=== PATIENT | female | born 1980 | race Caucasian/White ===

== ENCOUNTER 2017-03-17 20:36 | Emergency (ER) | payer MEDICAID ==
[~2017-03-17] VITALS: Ht 165.1 cm; Wt 63.5 kg
[2017-03-17 20:58] VITALS: Ht 165.1 cm; Wt 63.5 kg
[2017-03-17 21:56] VITALS: BP 115/68
== END 2017-03-17 21:56 | disposition home or self-care (01) ==
LOC: ED 20:36
DX: N39.0 Urinary tract infection, site not specified (principal); R81 Glycosuria

== ENCOUNTER 2018-03-12 19:35 | Inpatient (IN) | payer MEDICAID ==
[~2018-03-12] VITALS: Ht 162.6 cm; Wt 72.0 kg
[2018-03-12 21:15] LABS: BASOPHIL % 0.5 % (0-2); PLATELET COUNT 217 x10^3mcL (130-400); RED CELL DISTRIBUTION WIDTH 14.4 % (11.5-14.5)
[2018-03-12 21:37] LABS: ALKALINE PHOSPHATASE 80 U/L (46-116); ALT/SGPT 36 U/L (14-59); AMYLASE 35 U/L (25-115); AST/SGOT 22 U/L (15-37); BILIRUBIN TOTAL 0.41 mg/dL (0.20-1.00); CALCIUM 8.2 mg/dL (8.5-10.1); CARBON DIOXIDE 21.7 mmol/L (21-32); CHLORIDE SERUM 102 mmol/L (98-107); GFR1 > 60 mL/min; GLUCOSE SERUM 334 mg/dL (74-106); LIPASE 123 IU/L (73-393); SODIUM SERUM 135 mmol/L (136-145); TOTAL PROTEIN, SERUM 6.9 g/dL (6.4-8.2)
[2018-03-12 21:40] LABS: POTASSIUM SERUM 2.9 mmol/L (3.5-5.1)
[2018-03-12 21:57] LABS: UA SPECIFIC GRAVITY 1.025 (1.005-1.035); microscopic required? YES; urine erythrocyte 1+ (NEGATIVE)
[2018-03-12] MEDS ORDERED: METFORMIN HCL1000 MG PO (22:28)
[2018-03-12] MEDS ORDERED: ZESTRIL5 MG PO (22:29)
[2018-03-12] MEDS ORDERED: ZOCOR10 MG PO (22:30)
[2018-03-12 23:03] LABS: T3 TOTAL 0.95 ng/mL
[2018-03-12 23:21] VITALS: BP 98/56
[2018-03-12 23:21] LABS: CHOLESTEROL/HDL RATIO 3.9; MAGNESIUM 1.2 mg/dL (1.8-2.4); PHOSPHOROUS 1.2 mg/dL (2.5-4.9)
[2018-03-12 23:30] LABS: FREE T4 1.08 ng/dL (0.76-1.46); T4(THYROXINE) 8.8 ug/dL (4.7-13.3)
[2018-03-12 23:58] VITALS: BP 85/46
[2018-03-13] VITALS (8 sets, daily range): BP systolic 77–117; BP diastolic 40–83
[2018-03-13 00:23] LABS: AMPHETAMINE QUAL UR NONE DETECTED (See below)
[2018-03-13 06:16] LABS: BASOPHIL % 0.2 % (0-2); PLATELET COUNT 235 x10^3mcL (130-400); RED BLOOD CELLS 4.38 M/mm3 (4.10-5.10)
[2018-03-13 06:38] LABS: CALCIUM 8.2 mg/dL (8.5-10.1); CARBON DIOXIDE 17.8 mmol/L (21-32); CHLORIDE SERUM 111 mmol/L (98-107); CREATININE SERUM 0.9 mg/dL (0.6-1.0); GFR1 > 60 mL/min; GLUCOSE SERUM 250 mg/dL (74-106); MAGNESIUM 1.5 mg/dL (1.8-2.4); PHOSPHOROUS 2.4 mg/dL (2.5-4.9); POTASSIUM SERUM 3.7 mmol/L (3.5-5.1); SODIUM SERUM 143 mmol/L (136-145)
[2018-03-13 06:42] LABS: TOTAL IRON BINDING CAPACITY 376 ug/dL (250-450)
[2018-03-13 06:48] LABS: IRON 9 ug/dL (50-170)
[2018-03-13 07:14] LABS: RED CELL DISTRIBUTION WIDTH 15.1 % (11.5-14.5)
[2018-03-14 06:09] LABS: BASOPHIL % 0.1 % (0-2); PLATELET COUNT 179 x10^3mcL (130-400)
[2018-03-14 06:20] LABS: RED CELL DISTRIBUTION WIDTH 15.1 % (11.5-14.5)
[2018-03-14 06:24] LABS: CALCIUM 7.8 mg/dL (8.5-10.1); CARBON DIOXIDE 21.6 mmol/L (21-32); CHLORIDE SERUM 108 mmol/L (98-107); CREATININE SERUM 0.8 mg/dL (0.6-1.0); GFR1 > 60 mL/min; GLUCOSE SERUM 167 mg/dL (74-106); MAGNESIUM 1.8 mg/dL (1.8-2.4); PHOSPHOROUS 2.2 mg/dL (2.5-4.9); POTASSIUM SERUM 3.2 mmol/L (3.5-5.1); SODIUM SERUM 142 mmol/L (136-145)
[2018-03-14 06:30] VITALS: BP 105/70
[2018-03-14 08:57] VITALS: BP 110/71
[2018-03-14 13:15] VITALS: BP 105/70
[2018-03-14 18:01] VITALS: BP 116/78
[2018-03-14 21:07] VITALS: BP 126/77
[2018-03-15 05:34] VITALS: BP 113/78
[2018-03-15 06:37] LABS: CALCIUM 8.1 mg/dL (8.5-10.1); CARBON DIOXIDE 17.9 mmol/L (21-32); CHLORIDE SERUM 104 mmol/L (98-107); CREATININE SERUM 0.7 mg/dL (0.6-1.0); GFR1 > 60 mL/min; GLUCOSE SERUM 181 mg/dL (74-106); MAGNESIUM 1.9 mg/dL (1.8-2.4); PHOSPHOROUS 1.7 mg/dL (2.5-4.9); POTASSIUM SERUM 4.1 mmol/L (3.5-5.1); SODIUM SERUM 133 mmol/L (136-145)
[2018-03-15 06:42] LABS: BASOPHIL % 0.2 % (0-2); PLATELET COUNT 180 x10^3mcL (130-400)
[2018-03-15 07:07] LABS: RED CELL DISTRIBUTION WIDTH 15.2 % (11.5-14.5)
[2018-03-15 09:26] VITALS: BP 136/82
[2018-03-15 10:00] VITALS: Ht 162.6 cm; Wt 72.0 kg
[2018-03-15 11:59] VITALS: BP 116/80
[2018-03-15 16:34] VITALS: BP 129/81
[2018-03-15 20:41] VITALS: BP 144/81
[2018-03-16 05:02] VITALS: BP 112/70
[2018-03-16 06:59] LABS: BASOPHIL % 0.1 % (0-2); PLATELET COUNT 199 x10^3mcL (130-400)
[2018-03-16 07:35] LABS: RED CELL DISTRIBUTION WIDTH 15.8 % (11.5-14.5)
[2018-03-16 07:37] LABS: CALCIUM 8.3 mg/dL (8.5-10.1); CARBON DIOXIDE 16.6 mmol/L (21-32); CHLORIDE SERUM 111 mmol/L (98-107); CREATININE SERUM 0.6 mg/dL (0.6-1.0); GFR1 > 60 mL/min; GLUCOSE SERUM 150 mg/dL (74-106); POTASSIUM SERUM 4.1 mmol/L (3.5-5.1); SODIUM SERUM 140 mmol/L (136-145)
[2018-03-16 10:45] VITALS: BP 130/77
[2018-03-16 15:00] VITALS: BP 118/75
[2018-03-16 16:43] VITALS: BP 141/81
[2018-03-16 20:37] VITALS: BP 133/79
[2018-03-17 04:41] VITALS: BP 102/70
[2018-03-17 07:01] LABS: CALCIUM 8.5 mg/dL (8.5-10.1); CARBON DIOXIDE 18.6 mmol/L (21-32); CHLORIDE SERUM 106 mmol/L (98-107); CREATININE SERUM 0.7 mg/dL (0.6-1.0); GFR1 > 60 mL/min; GLUCOSE SERUM 150 mg/dL (74-106); MAGNESIUM 1.6 mg/dL (1.8-2.4); POTASSIUM SERUM 4.2 mmol/L (3.5-5.1); SODIUM SERUM 136 mmol/L (136-145)
[2018-03-17 09:45] LABS: PLATELET COUNT 254 x10^3mcL (130-400)
[2018-03-17 09:50] LABS: RED CELL DISTRIBUTION WIDTH 14.7 % (11.5-14.5)
[2018-03-17 11:14] LABS: BAND NEUTROPHIL 6 % (0-10); BASOPHIL 0 % (0-2); MONOCYTE 10 % (0-7); SEGMENTED NEUTROPHILS 50 % (37-75)
[2018-03-17 11:15] LABS: rbc morphology (normal/abnorm) ABNORMAL (NORMAL)
[2018-03-17 11:16] LABS: PLATELET MORPHOLOGY PLATELETS NORMAL; ovalocyte/elliptocyte 1+
[2018-03-17 12:25] VITALS: BP 114/72
[2018-03-17 17:15] VITALS: BP 141/83
[2018-03-18 06:35] VITALS: BP 142/59
[2018-03-18 10:30] VITALS: BP 97/59
[2018-03-18 12:55] VITALS: BP 118/72
[2018-03-18 17:05] VITALS: BP 104/65
[2018-03-18 20:38] VITALS: BP 117/69
[2018-03-19 06:00] VITALS: BP 112/64
[2018-03-19 06:32] LABS: CALCIUM 8.5 mg/dL (8.5-10.1); CARBON DIOXIDE 23.5 mmol/L (21-32); CHLORIDE SERUM 106 mmol/L (98-107); CREATININE SERUM 0.7 mg/dL (0.6-1.0); GFR1 > 60 mL/min; GLUCOSE SERUM 147 mg/dL (74-106); POTASSIUM SERUM 3.6 mmol/L (3.5-5.1); SODIUM SERUM 140 mmol/L (136-145)
[2018-03-19 06:38] LABS: BASOPHIL % 0.4 % (0-2); PLATELET COUNT 364 x10^3mcL (130-400); RED CELL DISTRIBUTION WIDTH 14.1 % (11.5-14.5)
[2018-03-19 09:51] VITALS: BP 106/68
[2018-03-19 14:13] VITALS: BP 107/71
[2018-03-19 17:30] VITALS: BP 119/75
[2018-03-19 21:30] VITALS: BP 93/56
[2018-03-20 06:04] VITALS: BP 121/69
[2018-03-20 08:05] VITALS: BP 123/76
[2018-03-20 11:56] VITALS: BP 117/72
[2018-03-20 16:09] VITALS: BP 99/60
[2018-03-20 20:45] VITALS: BP 117/69
[2018-03-21 05:39] VITALS: BP 105/59
[2018-03-21 09:06] VITALS: BP 111/58
[2018-03-21 16:16] VITALS: BP 109/60
[2018-03-21 20:45] VITALS: BP 101/60
[2018-03-22 05:43] VITALS: BP 115/72
[2018-03-22 09:27] VITALS: BP 102/63
[2018-03-22 16:40] VITALS: BP 102/69
[2018-03-22 20:56] VITALS: BP 96/61
[2018-03-23 05:32] VITALS: BP 95/61
[2018-03-23 06:32] LABS: BASOPHIL % 0.3 % (0-2)
[2018-03-23 06:34] LABS: PLATELET COUNT 447 x10^3mcL (130-400); RED CELL DISTRIBUTION WIDTH 15.5 % (11.5-14.5)
[2018-03-23 07:04] LABS: CALCIUM 9.3 mg/dL (8.5-10.1); CARBON DIOXIDE 28.5 mmol/L (21-32); CHLORIDE SERUM 102 mmol/L (98-107); CREATININE SERUM 0.7 mg/dL (0.6-1.0); GFR1 > 60 mL/min; GLUCOSE SERUM 157 mg/dL (74-106); POTASSIUM SERUM 4.1 mmol/L (3.5-5.1); SODIUM SERUM 137 mmol/L (136-145)
[2018-03-23 09:20] VITALS: BP 95/51
[2018-03-23 17:23] VITALS: BP 104/66
[2018-03-23 21:00] VITALS: BP 110/68
[2018-03-24 06:04] VITALS: BP 87/55
[2018-03-24 08:54] VITALS: BP 91/53
[2018-03-24 17:46] VITALS: BP 113/66
[2018-03-24 20:40] VITALS: BP 94/66
[2018-03-25 06:06] VITALS: BP 103/76
[2018-03-25 09:41] VITALS: BP 92/58
[2018-03-25 16:48] VITALS: BP 90/56
[2018-03-25 21:18] VITALS: BP 102/67
[2018-03-26 05:30] VITALS: BP 98/63
[2018-03-26 10:07] VITALS: BP 101/72
[2018-03-26 17:34] VITALS: BP 107/65
[2018-03-26 18:11] VITALS: BP 107/65
[2018-03-26 19:51] LABS: PLATELET COUNT 396 x10^3mcL (130-400)
[2018-03-26 20:00] LABS: RED CELL DISTRIBUTION WIDTH 15.6 % (11.5-14.5)
[2018-03-26 20:59] LABS: BAND NEUTROPHIL 5 % (0-10); BASOPHIL 0 % (0-2); SEGMENTED NEUTROPHILS 84 % (37-75); rbc morphology (normal/abnorm) ABNORMAL (NORMAL)
[2018-03-26 21:20] VITALS: BP 97/59
[2018-03-27 05:51] VITALS: BP 86/55
[2018-03-27 06:32] LABS: CALCIUM 8.6 mg/dL (8.5-10.1); CARBON DIOXIDE 26.1 mmol/L (21-32); CREATININE SERUM 1.3 mg/dL (0.6-1.0); POTASSIUM SERUM 4.2 mmol/L (3.5-5.1)
[2018-03-27 08:42] LABS: PLATELET COUNT 424 x10^3mcL (130-400); RED CELL DISTRIBUTION WIDTH 16.1 % (11.5-14.5)
[2018-03-27 09:41] LABS: BAND NEUTROPHIL 21 % (0-10); BASOPHIL 0 % (0-2); MONOCYTE 5 % (0-7); SEGMENTED NEUTROPHILS 69 % (37-75)
[2018-03-27 09:42] LABS: PLATELET MORPHOLOGY LARGE PLATELET SEEN; rbc morphology (normal/abnorm) ABNORMAL (NORMAL); tear drop cell (dacryocyte) 1+
[2018-03-27 09:50] VITALS: BP 84/56
[2018-03-27 17:45] VITALS: BP 79/43
[2018-03-27 18:45] VITALS: BP 76/42
[2018-03-27 20:47] VITALS: BP 75/42
[2018-03-27 23:46] VITALS: BP 73/39
[2018-03-28] VITALS (8 sets, daily range): BP systolic 72–97; BP diastolic 38–54
[2018-03-28 06:45] LABS: PLATELET COUNT 308 x10^3mcL (130-400)
[2018-03-28 07:28] LABS: CALCIUM 8.2 mg/dL (8.5-10.1); CARBON DIOXIDE 21.5 mmol/L (21-32); CHLORIDE SERUM 103 mmol/L (98-107); GFR1 > 60 mL/min; GLUCOSE SERUM 179 mg/dL (74-106); POTASSIUM SERUM 3.6 mmol/L (3.5-5.1); SODIUM SERUM 136 mmol/L (136-145)
[2018-03-28 07:29] LABS: RED CELL DISTRIBUTION WIDTH 16.2 % (11.5-14.5)
[2018-03-28 11:25] LABS: BAND NEUTROPHIL 24 % (0-10); BASOPHIL 0 % (0-2); MONOCYTE 3 % (0-7); SEGMENTED NEUTROPHILS 63 % (37-75)
[2018-03-28 11:27] LABS: PLATELET MORPHOLOGY GIANT PLATELET SEEN; burr cell (echinocyte) 1+; ovalocyte/elliptocyte 1+; rbc morphology (normal/abnorm) ABNORMAL (NORMAL); tear drop cell (dacryocyte) 1+
[2018-03-29 05:54] VITALS: BP 92/56
[2018-03-29 07:28] VITALS: BP 89/55
[2018-03-29 07:30] LABS: PLATELET COUNT 309 x10^3mcL (130-400)
[2018-03-29 07:32] LABS: CALCIUM 8.4 mg/dL (8.5-10.1); CARBON DIOXIDE 23.3 mmol/L (21-32); CHLORIDE SERUM 110 mmol/L (98-107); CREATININE SERUM 0.7 mg/dL (0.6-1.0); GFR1 > 60 mL/min; GLUCOSE SERUM 142 mg/dL (74-106); MAGNESIUM 2.2 mg/dL (1.8-2.4); POTASSIUM SERUM 3.6 mmol/L (3.5-5.1); SODIUM SERUM 143 mmol/L (136-145)
[2018-03-29 07:39] LABS: RED CELL DISTRIBUTION WIDTH 16.2 % (11.5-14.5)
[2018-03-29] MEDS ORDERED: NOVAPLUS VANCO125 MG PO (11:06)
[2018-03-29] MEDS ORDERED: PROA PO (11:12)
[2018-03-29 13:32] VITALS: BP 90/63
[2018-03-29 14:21] LABS: ATYPICAL LYMPH 4 %; BAND NEUTROPHIL 3 % (0-10); BASOPHIL 0 % (0-2); MONOCYTE 14 % (0-7); SEGMENTED NEUTROPHILS 65 % (37-75)
[2018-03-29 14:22] LABS: PLATELET MORPHOLOGY PLATELETS NORMAL; rbc morphology (normal/abnorm) NORMAL (NORMAL)
== END 2018-03-29 14:50 | disposition home or self-care (01) | DRG 710 ==
LOC: ED 19:35 → MU 22:22 → DU 22:22 → MU 23:12 → DU 03-13 02:13 → MU 03-20 17:25
PROVIDERS: Emergency Medicine; Family Medicine; Surgery; ADMIT Internal Medicine
PROC: 0FT44ZZ Resection of Gallbladder, Percutaneous Endoscopic Approach (ICD-10-PCS; principal; 2018-03-18 07:45)
DX: A41.51 Sepsis due to Escherichia coli [E. coli] (principal); N17.0 Acute kidney failure with tubular necrosis; E44.0 Moderate protein-calorie malnutrition; K65.9 Peritonitis, unspecified; K80.70 Calculus of gallbladder and bile duct without cholecystitis without obstruction; R65.20 Severe sepsis without septic shock; E11.65 Type 2 diabetes mellitus with hyperglycemia; E87.6 Hypokalemia; N39.0 Urinary tract infection, site not specified; E87.1 Hypo-osmolality and hyponatremia; D50.9 Iron deficiency anemia, unspecified; E83.42 Hypomagnesemia; E78.5 Hyperlipidemia, unspecified; I10 Essential (primary) hypertension; E83.39 Other disorders of phosphorus metabolism; N20.0 Calculus of kidney; Z68.25 Body mass index [BMI] 25.0-25.9, adult; Z79.84 Long term (current) use of oral hypoglycemic drugs
CPT/HCPCS: 74181; 78226; 82962; 83880; 84439; 87804; 94150; 97112-GP; 97116-GP; A9537; J0330; J0696; J1170; J1200; J1885; J2185; J2270; J2405; J2543; J2704; J2710; J3010; J3370; J3490; J7030; J7042; J7050; P9047; Q0092; Q0163; Q9967